=== PATIENT | male | born 1995 | race Caucasian/White ===

== ENCOUNTER 2025-05-07 15:45 | Outpatient (REF) | payer OTHER, SELFPAY | END 2025-05-07 15:46 | disposition home or self-care (01) | LOC: LBN 15:45 | PROVIDERS: Visit Provider Physician Assistant Medical | DX: T81.49XA Infection following a procedure, other surgical site, initial encounter (principal); Z98.52 Vasectomy status | CPT/HCPCS: 87077; 87070; 87186; 87205 ==